=== PATIENT | male | born 1945 | race Caucasian/White ===

== ENCOUNTER 2023-07-23 11:05 | Outpatient (REF) | payer BC, SELFPAY | END 2023-07-23 11:06 | disposition home or self-care (01) | LOC: LBN 11:05 | PROVIDERS: Visit Provider Physician Assistant Medical | DX: L08.89 Other specified local infections of the skin and subcutaneous tissue (principal); J34.89 Other specified disorders of nose and nasal sinuses | CPT/HCPCS: 87070; 87205 ==